=== PATIENT | male | born 1955 | race Caucasian/White ===

== ENCOUNTER 2017-04-07 17:12 | Emergency (ER) | payer OTHER ==
[~2017-04-07] VITALS: Ht 177.8 cm; Wt 77.1 kg
--- NOTE | ~2017-04-07 | EKG ---
[address] [address] [place] [address] ELECTROCARDIOGRAM REPORT Name: TAI DOWLING Room #: DEP Faye#: [id number] Admission: 04/07/17 Attend Phys: Discharge: 04/07/17 Date of : 55 Report #: [id number] THIS REPORT FOR: //name// [facility] ED Test Date: 2017-04-07 Test Time: 17:38:27 Pat Name: TAI DOWLING Department: Room: Gender: M Roll Wrapper: SUSANANJEL : 1955 Requested By: Carlee Suarez Order Number: [id number] MD: Jd Tee Measurements Intervals [place] Rate: 57 P: 25 DE: 193 QRS: 45 QRSD: 119 T: 121 QT: 495 QTc: 482 Interpretive Statements Sinus rhythm Nonspecific ST and T wave abnormality Compared to ECG 08/30/2014 07:06:[address] and T wave abnormality is now present Electronically Signed On 04-08-2017 9:25:11 CDT by Jd Tee [email or web address] <ELECTRONICALLY SIGNED> By: Jd Tee MD, [facility] 04/08/17 0925 1738 37 Jd Tee MD, FACC /EPI
[~2017-04-07 17:12] MED LIST: ACTIVE-Q200 MG PO; ALPHA LIPOIC A200 M1 PO; ASPIR 8181 MG PO; ATORVASTATIN CA40 MG PO; COLACE100 MG PO; DEMADEX20 MG PO; HYDROCODONE-AP1 EAC6 PO; L-ARGININE500 M1 PO; L-ARGININE500 MG PO; L-CARNITINE500 MG PO; LISINOPRIL10 MG PO; LUTEIN 15 MG S1 EACH PO; MIRALAX17 GM PO; NITROSTAT0.4 M1 SL; PACERONE 200 M200 M1 PO; PRILOSEC20 MG PO; TOPROL XL25 MG PO; TYLENOL325 MG PO; UNICOMPLEX M TA1 TA1 PO; XALATAN2.5 ML OPHTHALMIC
[2017-04-07 17:50] LABS: HEMATOCRIT 25.5 % (42.0-52.0); HEMOGLOBIN 8.3 gm/dL (14.0-18.0); MCH 31.7 pg (26.0-34.0); MCHC 32.7 g/dL (28.0-37.0); PLATELET COUNT 60 thou/uL (150-400); RBC 2.63 mil/uL (4.50-6.00); RDW 17.2 % (10.5-14.5); WBC 3.9 thou/uL (4.0-11.0)
[2017-04-07 17:53] LABS: MANUAL DIFF YES
[2017-04-07 18:00] LABS: CREATININE 4.2 mg/dL (0.7-1.3); POTASSIUM 5.8 mmol/L (3.5-5.1)
[2017-04-07 18:19] LABS: ABSOLUTE NEUTROPHILS 3.3 thou/uL (1.4-8.2); ANISOCYTOSIS 1+; TOTAL CELL COUNT 100
[2017-04-07 18:20] LABS: POLYCHROMASIA OCCASIONAL
[2017-04-07] MEDS ORDERED: DEMADEX20 MG PO (18:42)
== END 2017-04-07 19:21 | disposition home or self-care (01) ==
LOC: ER 17:12
PROVIDERS: Emergency Medicine
DX: E87.79 Other fluid overload (principal); I12.9 Hypertensive chronic kidney disease with stage 1 through stage 4 chronic kidney disease, or unspecified chronic kidney disease; E11.22 Type 2 diabetes mellitus with diabetic chronic kidney disease; N18.9 Chronic kidney disease, unspecified; E11.40 Type 2 diabetes mellitus with diabetic neuropathy, unspecified; R06.00 Dyspnea, unspecified; E87.5 Hyperkalemia; D61.818 Other pancytopenia; E78.5 Hyperlipidemia, unspecified; K21.9 Gastro-esophageal reflux disease without esophagitis; Z95.5 Presence of coronary angioplasty implant and graft; F10.99 Alcohol use, unspecified with unspecified alcohol-induced disorder; Z88.1 Allergy status to other antibiotic agents

== ENCOUNTER 2017-08-27 03:03 | Inpatient (IN) | payer OTHER ==
[~2017-08-27] VITALS: Ht 177.8 cm; Wt 73.9 kg
[2017-08-27 03:10] VITALS: BP 138/72
[2017-08-27] MEDS ORDERED: NORVASC2.5 MG (03:15)
[2017-08-27] MEDS ORDERED: BETIMOL5 ML (03:17)
[2017-08-27 03:36] LABS: ABSOLUTE NEUTROPHILS 4.6 thou/uL (1.4-8.2); BASOPHILS 1.1 % (0.0-2.0); HEMATOCRIT 27.7 % (42.0-52.0); HEMOGLOBIN 9.2 gm/dL (14.0-18.0); LYMPHOCYTES 7.1 % (24.0-44.0); MCH 32.3 pg (26.0-34.0); MCV 97.7 fL (80.0-100.0); MONOCYTES 7.5 % (1.0-8.0); PLATELET COUNT 57 thou/uL (150-400); POLYS 82.3 % (36.0-66.0); RBC 2.84 mil/uL (4.50-6.00); RDW 17.1 % (10.5-14.5); WBC 5.6 thou/uL (4.0-11.0)
[2017-08-27 03:44] LABS: CALCIUM 7.5 mg/dL (8.5-10.1); POTASSIUM 4.3 mmol/L (3.5-5.1)
[2017-08-27 03:46] LABS: ALBUMIN 3.6 g/dL (3.4-5.0); DIRECT BILIRUBIN 0.2 mg/dL (<0.1-0.3); TOTAL BILIRUBIN 0.5 mg/dL (<0.1-1.0); TOTAL PROTEIN 7.3 g/dL (6.4-8.2)
[2017-08-27 03:52] LABS: MANUAL DIFF NO
[2017-08-27 07:37] VITALS: BP 137/61
[2017-08-27 08:00] VITALS: BP 140/68
[2017-08-27 10:40] VITALS: BP 140/68
== END 2017-08-27 10:15 | disposition home or self-care (01) | DRG 391 ==
LOC: ER 03:03 → EROBS 05:45 → 4N 07:22
PROVIDERS: Emergency Medicine
DX: R10.9 Unspecified abdominal pain (principal); N18.6 End stage renal disease; R18.8 Other ascites; I12.0 Hypertensive chronic kidney disease with stage 5 chronic kidney disease or end stage renal disease; K21.9 Gastro-esophageal reflux disease without esophagitis; E78.5 Hyperlipidemia, unspecified; E11.22 Type 2 diabetes mellitus with diabetic chronic kidney disease; E11.40 Type 2 diabetes mellitus with diabetic neuropathy, unspecified; K81.9 Cholecystitis, unspecified; D69.6 Thrombocytopenia, unspecified; D64.9 Anemia, unspecified; E78.00 Pure hypercholesterolemia, unspecified; Z88.1 Allergy status to other antibiotic agents; Z79.899 Other long term (current) drug therapy
CPT/HCPCS: 10091

== ENCOUNTER 2019-07-05 08:25 | Emergency (ER) | payer OTHER ==
[~2019-07-05] VITALS: Ht 177.8 cm; Wt 70.3 kg
[~2019-07-05 08:25] MED LIST changes: +BETIMOL5 ML; +NORVASC2.5 MG
[2019-07-05 10:34] VITALS: BP 118/65
== END 2019-07-05 10:34 | disposition home or self-care (01) ==
LOC: ER 08:25
DX: M25.551 Pain in right hip (principal); I10 Essential (primary) hypertension; K21.9 Gastro-esophageal reflux disease without esophagitis; Z86.2 Personal history of diseases of the blood and blood-forming organs and certain disorders involving the immune mechanism; E78.5 Hyperlipidemia, unspecified; Z95.2 Presence of prosthetic heart valve; Z88.1 Allergy status to other antibiotic agents